=== PATIENT | female | born 1980 | race Caucasian/White ===

== ENCOUNTER 2017-08-30 13:31 | Emergency (ER) | payer OTHER | END 2017-08-30 14:00 | disposition left against medical advice (07) | LOC: UCCORT 13:31 | DX: S69.91XA Unspecified injury of right wrist, hand and finger(s), initial encounter (principal); X58.XXXA Exposure to other specified factors, initial encounter; Z53.21 Procedure and treatment not carried out due to patient leaving prior to being seen by health care provider ==

== ENCOUNTER 2017-09-01 17:32 | Emergency (ER) | payer OTHER ==
[2017-09-01 19:12] VITALS: BP 127/81
--- NOTE | 2017-09-01 19:20 | UC ---
Upper Extremity HPI - History of Current Complaint Chief Complaint: UCUpperExtremity Stated Complaint: RIGHT WRIST INJURY Time Seen by Provider: 09/01/17 19:20 Hx Obtained From: Patient Hx Last Menstrual Period: irreg - Allergies/Home Medications Allergies/Adverse Reactions: Allergies Allergy/AdvReac Type Severity Reaction Status Date / Time Latex Allergy Intermediate Rash Verified 09/01/17 19:10 Tramadol Allergy Intermediate See Comment Verified 09/01/17 19:10 BEE STINGS Allergy ANAPHYLAXIS Uncoded 09/01/17 19:10 ENVIRONMENTAL Allergy ASTHMA Uncoded 09/01/17 19:10 ORANGE JUICE Allergy Hives Uncoded 09/01/17 19:10 Home Medications: Home Medications Acetaminophen [Acetaminophen Extra Stren] 1,000 mg PO ONCE PRN 09/01/17 [ History Confirmed 09/01/17] PMH/Surg Hx/FS Hx/Imm Hx - Surgical History Surgical History: Yes Surgery Procedure, Year, and Place: 2009 RIGHT SHOULDER DECOMPRESSION, [place]. CARPAL TUNNEL. AND VENOUS SX - Family History Known Family History: Positive: None, Cardiac Disease, Other - Multiple sclerosis - Social History Alcohol Use: Rare Substance Use Type: None Smoking Status (MU): Heavy Every Day Tobacco Smoker Type: Cigarettes Amount Used/How Often: 1/2 -1 ppd Length of Time of Smoking/Using Tobacco: 16 yrs Have You Smoked in the Last Year: Yes Household Exposure Type: Cigarettes Physical Exam Vital Signs: Initial Vital Signs Temp 36.3 C 09/01/17 19:06 Pulse 68 09/01/17 19:06 Resp 14 09/01/17 19:06 BP 127/81 09/01/17 19:06 Discharge - Discharge Plan Condition: Stable Disposition: LEFT WITHOUT BEING SEEN Referrals: No Primary Care Phys,NOPCP [Primary Care Provider] -
== END 2017-09-01 19:35 | disposition left against medical advice (07) ==
LOC: UCCORT 17:32
DX: Z53.21 Procedure and treatment not carried out due to patient leaving prior to being seen by health care provider (principal)

== ENCOUNTER 2017-09-10 11:37 | Emergency (ER) | payer OTHER ==
[2017-09-10 12:10] VITALS: BP 134/74
--- NOTE | 2017-09-10 12:18 | UC ---
Respiratory Complaint HPI - HPI Summary HPI Summary: Pt presents to with complaint of cough, wheeze x 5 days. Pt states cough with white sputum. Pt with h/o asthma. Has been intermittently using neb with short term relief. No fevers, chills. Pt states concerned has pna. started with nasal congestion and sore throat, now in chest. No cough medication trialed. Pt was sent home from work today. Pt states chest is tight "like when my asthma is bad" no nausea. No leg edema. + sick contact. Did not get flu vaccine. Pt's medications reviewed this visit - History of Current Complaint Chief Complaint: UCRespiratory Stated Complaint: SORE THRAOT/PNEUMONIA Time Seen by Provider: 09/10/17 12:05 Hx Obtained From: Patient Hx Last Menstrual Period: 07/21/17 Onset/Duration: Gradual Onset Timing: Constant Severity Initially: Mild Character: Cough: Productive Aggravating Factors: Allergens, Exertion Alleviating Factors: Bronchodilator Associated Signs And Symptoms: Positive: URI, Nasal Congestion - Allergies/Home Medications Allergies/Adverse Reactions: Allergies Allergy/AdvReac Type Severity Reaction Status Date / Time Latex Allergy Intermediate Rash Verified 09/10/17 11:56 Tramadol Allergy Intermediate See Comment Verified 09/10/17 11:56 BEE STINGS Allergy ANAPHYLAXIS Uncoded 09/10/17 11:56 ENVIRONMENTAL Allergy ASTHMA Uncoded 09/10/17 11:56 ORANGE JUICE Allergy Hives Uncoded 09/10/17 11:56 Home Medications: Home Medications Albuterol 2.5MG/3ML (0.083%)* [Ventolin 2.5 MG/3 ML NEB.LEONID*] 2.5 mg INH Q4H PRN 09/10/17 [History Confirmed 09/10/17] PMH/Surg Hx/FS Hx/Imm Hx Previously Healthy: Yes Respiratory History: Asthma - Surgical History Surgical History: Yes Surgery Procedure, Year, and Place: 2009 RIGHT SHOULDER DECOMPRESSION, [place]. CARPAL TUNNEL. AND VENOUS SX - Family History Known Family History: Positive: None, Cardiac Disease, Other - Multiple sclerosis - Social History Occupation: Employed Full-time Lives: With Family Alcohol Use: Rare Substance Use Type: None Smoking Status (MU): Heavy Every Day Tobacco Smoker Type: Cigarettes Amount Used/How Often: 1/2 -1 ppd Length of Time of Smoking/Using Tobacco: 16 yrs Have You Smoked in the Last Year: Yes Household Exposure Type: Cigarettes Review of Systems Constitutional: Negative Skin: Negative Eyes: Negative ENT: Negative Respiratory: Shortness Of Breath, Cough, Other - wheeze Musculoskeletal: Negative All Other Systems Reviewed And Are Negative: Yes Physical Exam Triage Information Reviewed: Yes Appearance: Well-Nourished, Other: - coarse, persistent coughing Vital Signs: Initial Vital Signs Temp 98 F 09/10/17 11:58 Pulse 84 09/10/17 11:58 Resp 18 09/10/17 11:58 BP 134/74 09/10/17 11:58 Pulse Ox 97 09/10/17 11:58 Vital Signs Reviewed: Yes Eye Exam: Normal Eyes: Positive: Conjunctiva Clear ENT Exam: Normal ENT: Positive: Normal ENT inspection, Hearing grossly normal, Pharynx normal, TMs normal Dental Exam: Normal Neck exam: Normal Neck: Positive: Supple, Nontender, No Lymphadenopathy Respiratory: Positive: Chest non-tender, Wheezing - Diffuse insp/exp wheeze, coarse cough, Other: - increased RR + accessory muscle use Cardiovascular Exam: Normal Cardiovascular: Positive: RRR - borderline tachy Abdominal Exam: Normal Abdomen Description: Positive: Nontender, No Organomegaly, Soft Bowel Sounds: Positive: Present Musculoskeletal Exam: Normal Musculoskeletal: Positive: Strength Intact Neurological Exam: Normal Neurological: Positive: Alert Psychological Exam: Normal Skin Exam: Normal UC Diagnostic Evaluation - Laboratory O2 Sat by Pulse Oximetry: 97 Re-Evaluation - Re-Evaluation First Eval Change: Improved - Pt markedly improved no coughing, few scattered wheezes. Pt on second neg rapid strep neg will check CXR Second Eval Change: Improved - PT continued to improve, few wheeze decreased coughing Will give abx, pred, Robitussin with codeine, tessalo pearls, duoneb return precaution work note Respiratory Course/Dx - Course Course Of Treatment: Pt is asthmatic - coarse cough, wheeze. Started with URI. Will give nebs, solumedrol. CXR. close reassessment - Differential Dx/Diagnosis Provider Diagnoses: acute bronchitis. asthma exacerbation Discharge - Discharge Plan Condition: Stable Disposition: HOME Prescriptions: Albuterol 2.5MG/3ML (0.083%)* [Ventolin 2.5 MG/3 ML NEB.LEONID*] 2.5 mg INH Q4H # 30 neb.leonid Azithromycin TAB* [Zithromax TAB (Z-DEBBIE) 250 mg #6 tabs] 2 tab PO .TODAY, THEN 1 DAILY #1 debbie Benzonatate CAP* [Tessalon 100 MG CAP*] 100 mg PO TID PRN #15 cap PRN Reason: Cough Prednisone [Deltasone] 40 mg PO DAILY #8 tab guaiFENesin/CODIEN 100MG-10MG* [Robitussin AC 100Mg-10Mg*] 5 ml PO Q4H PRN #10 udc MDD 30 PRN Reason: Cough Patient Education Materials: Asthma (ED), Acute Bronchitis (ED) Forms: *Work Release Referrals: No Primary Care Phys,NOPCP [Primary Care Provider] - Additional Instructions: - Stay well hydrated. Drink plenty of non-alcoholic, non-caffinated beverages - okay to take Tessalon Pearls or Robitussin with codeine as prescribed for cough. Do not drive, operate machinery or drink alcohol while taking Codeine - take antibiotics as prescribed until gone - Use your nebulizer every 4 hours today and tomorrow - then every 4 hours as needed. - These infections are spread by secretions. Once you have been on antibiotics for 2 days, change your pillowcase and your toothbrush - Contact your doctor, go to the emergency department or return here with questions or concerns
[2017-09-10] MEDS ORDERED: Albuterol/Ipratropium NEB.SOL* Albuterol 2.5 MG/Ipratropium 0.5 MG 3 ML INH ONE ×2 (12:20→12:40)
[2017-09-10] MEDS ORDERED: methylPREDNISolone 125 MG* 2 ML VIAL IM ONE (12:23)
--- NOTE | 2017-09-10 13:41 | RAD ---
INDICATION: Cough, wheezing, asthma. History of tobacco use. COMPARISON: August 20, 2011 TECHNIQUE: Dual energy PA and routine lateral views of the chest were obtained. REPORT: Elevated lung volumes and both diffuse mild prominence of the interstitial markings and patchy rarefaction of the mid to upper lung zone interstitial markings. No focal pulmonary lesion, compelling alveolar consolidation, pleural effusion, pneumothorax. The heart, pulmonary vasculature, and mediastinal contours are unremarkable. Unremarkable soft tissue contours and osseous structures. IMPRESSION: Stigmata of obstructive lung disease. No acute pulmonary or cardiac process evident.
[2017-09-10] MEDS ORDERED: Benzonatate CAP* 100 MG PO ONE (13:45)
== END 2017-09-10 14:05 | disposition home or self-care (01) ==
LOC: UCCORT 11:37
DX: J02.9 Acute pharyngitis, unspecified (principal); Z91.040 Latex allergy status; Z88.5 Allergy status to narcotic agent; Z91.030 Bee allergy status; Z91.018 Allergy to other foods; Z77.22 Contact with and (suspected) exposure to environmental tobacco smoke (acute) (chronic)
CPT/HCPCS: 71020; 87651; 93005; 96372; 99213; A9270-GY; G0463; J2930

== ENCOUNTER 2019-12-30 10:58 | Emergency (ER) | payer OTHER ==
[2019-12-30 11:51] VITALS: BP 106/75
--- NOTE | 2019-12-30 12:03 | UC ---
General HPI - HPI Summary HPI Summary: Patient here with abdominal pain. States she had a tubal ligation on 12/24. States the pain is worse and has drainage at belly button site. She is using neosporin. States she has been trying to get in to see the surgeon, Dr. Burgos but has not gotten in to see him. States she was having bowel issues before but took a suppository this morning and had a BM. No fever. states she has vomited from the pain. 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 No rash. Meds: reviewed - History of Current Complaint Chief Complaint: CHRISkin Stated Complaint: BELLY PAIN FROM SURGERY Time Seen by Provider: 12/30/19 11:39 Hx Last Menstrual Period: end november Pain Intensity: 8 - Allergy/Home Medications Allergies/Adverse Reactions: Allergies Allergy/AdvReac Type Severity Reaction Status Date / Time latex Allergy Hives Verified 12/30/19 11:40 tramadol Allergy See Comment Verified 12/30/19 11:40 BEE STINGS Allergy ANAPHYLAXIS Uncoded 09/10/17 11:56 ENVIRONMENTAL Allergy ASTHMA Uncoded 09/10/17 11:56 ORANGE JUICE Allergy Hives Uncoded 09/10/17 11:56 Home Medications: Home Medications Albuterol 2.5MG/3ML (0.083%)* [Ventolin 2.5 MG/3 ML NEB.LEONID*] 2.5 mg INH Q4H PRN 12/30/19 [History Confirmed 12/30/19] Ibuprofen TAB* [Advil TAB*] 600 mg PO Q6H PRN 12/30/19 [History Confirmed ] Oxycodone HCl/Acetaminophen [Endocet] 1 tab PO ONCE PRN 12/30/19 [History Confirmed 12/30/19] Pnv No.95/Ferrous Fum/Folic AC [ Caplet] 1 each PO DAILY 12/30/19 [ History Confirmed 12/30/19] Simethicone [Gas-X Extra Strength] 125 mg PO DAILY 12/30/19 [History Confirmed 12/30/19] Suppository. 1 supp .SEE ORDER ONCE PRN 12/30/19 [History] PMH/Surg Hx/FS Hx/Imm Hx Previously Healthy: Yes - Surgical History Surgical History: Yes Surgery Procedure, Year, and Place: 2009 RIGHT SHOULDER DECOMPRESSION, [place]. CARPAL TUNNEL. AND VENOUS SX. tubal ligation - Family History Known Family History: Positive: None, Cardiac Disease, Other - Multiple sclerosis - Social History Alcohol Use: None Substance Use Type: None Smoking Status (MU): Heavy Every Day Tobacco Smoker Type: Cigarettes Amount Used/How Often: 1/2 -1 ppd Length of Time of Smoking/Using Tobacco: 16 yrs Have You Smoked in the Last Year: Yes Household Exposure Type: Cigarettes Review of Systems All Other Systems Reviewed And Are Negative: Yes Gastrointestinal: Positive: Abdominal Pain, Nausea Physical Exam Triage Information Reviewed: Yes Appearance: Well-Appearing Vital Signs: Initial Vital Signs Temp 97.4 F 12/30/19 11:45 Pulse 74 12/30/19 11:45 Resp 16 12/30/19 11:45 BP 106/75 12/30/19 11:45 Pulse Ox 97 12/30/19 11:45 Vital Signs Reviewed: Yes Neck: Positive: Supple Abdomen Description: Positive: Soft, Other: - serous dark drainage from umbilical site. No erythema or edema No rebound or gaurding, tenderness over left side Bowel Sounds: Positive: Present Course/Dx - Course Course Of Treatment: This is a 39 yr old who had tubal ligation on 12/24 who has abdominal pain and drainage from umbilical site Abdominal exam benign drainage from umbilicus - unclear if this is purulent - could be serous with the neosporin combined with it. Able to talk to DR. Burgos's office who states they have offered to see her multiple times but she has not wanted to be seen They are able to get her in today at 3:15 Plan You have an apt with Dr. Burgos today for follow up Recommend mupircin ointment in place of neosporin - Diagnoses Provider Diagnosis: Abdominal pain Discharge ED - Sign-Out/Discharge Documenting (check all that apply): Patient Departure All imaging exams completed and their final reports reviewed: No Studies - Discharge Plan Condition: Fair Disposition: HOME Referrals: No Primary Care Phys,NOPCP [Primary Care Provider] - Additional Instructions: You have an apt with Dr. Burgos today for follow up at 3:15 - please see him for evaluation of your symptoms today Recommend mupircin ointment in place of neosporin - Billing Disposition and Condition Condition: FAIR Disposition: Home
--- NOTE | 2019-12-30 18:07 | UC ---
- Progress Note Progress Note: Wound culture of umbilical surgical wound from December 30, 2019 comes back as MRSA negative and staph aureus positive. Patient is using topical mupirocin. Patient had an appointment to see her surgeon today at 3:15 in the afternoon after she was seen here in clinic. Nursing to call patient ensure that she has followed up with her surgeon. I have called in a prescription for Keflex. If the patient has not followed up with her surgeon she needs to follow-up with her surgeon if she gets worse she is to go the emergency department. Course/Dx - Diagnoses Provider Diagnoses: Abdominal pain Discharge ED - Sign-Out/Discharge Documenting (check all that apply): Patient Departure All imaging exams completed and their final reports reviewed: No Studies - Discharge Plan Condition: Fair Disposition: HOME Prescriptions: Cephalexin CAP* [Keflex CAP*] 500 mg PO QID #40 cap Mupirocin 2% OINT* [Bactroban 2 % Oint*] 1 applic TOPICAL BID #1 tube Forms: *Work Release Referrals: No Primary Care Phys,NOPCP [Primary Care Provider] - Additional Instructions: You have an apt with Dr. Burgos today for follow up at 3:15 - please see him for evaluation of your symptoms today Recommend mupircin ointment in place of neosporin - Billing Disposition and Condition Condition: FAIR Disposition: Home
== END 2019-12-30 12:17 | disposition home or self-care (01) ==
LOC: UCCORT 10:58
DX: L76.82 Other postprocedural complications of skin and subcutaneous tissue (principal); R10.33 Periumbilical pain; F17.210 Nicotine dependence, cigarettes, uncomplicated; R11.2 Nausea with vomiting, unspecified; Z88.5 Allergy status to narcotic agent; Z91.040 Latex allergy status; Z91.030 Bee allergy status; Z91.018 Allergy to other foods; Z91.09 Other allergy status, other than to drugs and biological substances
CPT/HCPCS: 87070; 87076; 87077; 87205; 87640; 87641; 99212; G0463

== ENCOUNTER 2021-05-29 11:13 | Inpatient (IN) ==
[~2021-05-29 11:13] MED LIST: Buffered Lidocaine 1% SYRIN 1 ml INTRADERM ONE; DiMENhydriNATE IV 50 mg/ml 1 ml VIAL IV PUSH PRN; Lactated Ringers 1000 ml BAG 1,000 ML IV SCH; Naloxone 0.4 mg VIAL 0.4 mg/ml 1 ml VIAL IV PRN; Ondansetron 4 mg VIAL 2 MG/ML 2 ml VIAL IV PRN; oxyCODONE/Acetamin 5/325 mg TAB PO PRN
[2021-05-29] MEDS ORDERED: Heparin 5000 UNITS/ML 1 mL VIAL ONE (11:34)
[2021-05-29] MEDS ORDERED: Buffered Lidocaine 1% SYRIN 1 ml INTRADERM ONE (11:35)
[2021-05-29] MEDS ORDERED: ceFAZolin 1 GM ADVAN 1 GM ADDV.VIAL IVPB ONE (11:35)
[2021-05-29] MEDS ORDERED: ceFAZolin 2 GM PREMIX 2 GM/50 ML BAG ONE (11:35)
[2021-05-29] MEDS ORDERED: Bupivacaine 0.25% SDV 30 ML ONE (12:56)
[2021-05-29] MEDS ORDERED: fentaNYL 250 mcg/5 ml 50 MCG/ML 5 ml VIAL (250 MCG) ONE (13:22)
[2021-05-29] MEDS ORDERED: Propofol 10 MG/ML 20 ML BTL ONE (13:29)
[2021-05-29] MEDS ORDERED: Rocuronium 50 mg VIAL 10 mg/ml 5 ml VIAL (50 mg) ONE ×2 (13:29→14:34)
[2021-05-29] MEDS ORDERED: fentaNYL 100 mcg/2 ml 50 MCG/ML VIAL ONE (15:39)
[2021-05-29] MEDS ORDERED: DiMENhydriNATE IV 50 mg/ml 1 ml VIAL ONE (15:39)
[2021-05-29] MEDS ORDERED: HYDROmorphone 1 MG/1 ML SYRINGE IV SLOW PU PRN (15:39)
[2021-05-29] MEDS ORDERED: HYDROmorphone 0.5 MG/0.5 ML SYRINGE IV SLOW PU PRN (15:39)
[2021-05-29] MEDS ORDERED: diPHENhydraMINE IV 50 MG/ML 1 ml VIAL (BENADRYL) SLOW PUSH PRN (15:39)
[2021-05-29] MEDS: fentaNYL 100 mcg/2 ml 50 MCG/ML VIAL IV PRN ×2 (15:52→16:11)
[2021-05-29] MEDS: Lactated Ringers 1000 ml BAG 1,000 ML IV SCH (17:22)
[2021-05-29] MEDS: Ondansetron 4 mg VIAL 2 MG/ML 2 ml VIAL IV PRN (18:01)
[2021-05-29] MEDS: Famotidine IV 10 MG/ML 2 ml VIAL (20 mg) IV SLOW PU SCH (21:16)
[2021-05-29] MEDS: Heparin 5000 UNITS/ML 1 mL VIAL SUBCUT SCH (21:16)
[2021-05-29] MEDS: DiMENhydriNATE IV 50 mg/ml 1 ml VIAL IV PUSH PRN (21:49)
[2021-05-30] MEDS: Lactated Ringers 1000 ml BAG 1,000 ML IV SCH ×2 (00:04→07:28)
[2021-05-30] MEDS: Ondansetron 4 mg VIAL 2 MG/ML 2 ml VIAL IV PRN ×2 (04:46→15:01)
[2021-05-30] MEDS: Heparin 5000 UNITS/ML 1 mL VIAL SUBCUT SCH ×2 (05:26→14:51)
[2021-05-30] MEDS: DiMENhydriNATE IV 50 mg/ml 1 ml VIAL IV PUSH PRN (07:28)
[2021-05-30] MEDS: Famotidine IV 10 MG/ML 2 ml VIAL (20 mg) IV SLOW PU SCH (07:28)
[2021-05-30] MEDS ORDERED: D5W 1/2 NS KCl 20 meq 1000 ml 1,000 ML IV SCH (16:00)
[2021-05-30 16:23] VITALS: BP 121/57
[2021-06-01] MEDS ORDERED: Scopolamine PATCH Remove NOTE PATCH OFF SCH (17:00)
== END 2021-05-30 19:55 | disposition home or self-care (01) | DRG 403 ==
LOC: OR 11:13 → SSU 17:19
PROVIDERS: ADMIT Surgery; ATTEND Surgery